=== PATIENT | male | born 1940 | race Caucasian/White ===

== ENCOUNTER → 2016-07-27 | Outpatient (CLI) | payer OTHER ==
[~2016-07-27] MED LIST: ASCORBIC ACID500 M3 PO; ASPIR-LOW81 MG PO; BAYER CHEWABLE81 MG PO; BISACODYL5 MG PO; CIPRO500 MG PO; CYANOCOBALAM1000 MCG PO; DOK PLUS TABLE1 EACH PO; DUONEB 2.5-0.5 M3 ML PEP; ECOTRIN325 MG PO; FAMOTIDINE20 MG PO; FERROUS SULFAT325 MG PO; FOLIC ACID1 MG PO; GLUCOTROL5 MG PO; IMODIUM MS REL1 EACH PO; LABETALOL H5 MG/1 M1 IV; LEVEMIR100 UNIT/2 SC; LISINOPRIL10 MG PO; LOPRESSOR50 MG PO; LOVENOX40 MG/0.4 SC; NEUTRA-PHOS,1 PACKET PO; NOVOLOG PE100 UNITS/ SC; ONDANSETRON4 MG/2 ML IV; POTASSIUM CHLO20 ME1 PO; PROMETHAZI25 MG/1 M2 IM; PROMETHAZINE HC25 M1 PO; SALINE FLUSH 5 M5 ML IV; THERAGRAN1 TABLET PO; TYLENOL ARTHRI650 MG PO; TYLENOL REGULA325 MG PO; TYLENOL650 MG PR; VITAMIN D2000 UNIT PO
== END | disposition home or self-care (01) ==
LOC: RAD 07-26 09:00
DX: N13.30 Unspecified hydronephrosis (principal)
CPT/HCPCS: 76770; 78709; A9562

== ENCOUNTER 2016-12-10 17:49 | Inpatient (IN) | payer OTHER ==
[~2016-12-10] VITALS: Ht 170.2 cm; Wt 65.8 kg
[2016-12-10 18:50] LABS: EOSINOPHIL (%) 0.2 % (0-5); HEMATOCRIT 40.6 % (38.0-50.0); IMMATURE GRANULOCYTE (%) 0.6 % (0.0-0.7); IMMATURE GRANULOCYTE COUNT 0.1 K/uL; INSTRUMENT ABS NEUTROPHIL CT 11.2 K/uL; LYMPHOCYTE COUNT 1.1 K/uL (1.0-2.8); MCH 29.7 PG (29.0-34.0); MCHC 33.7 G/DL (30.0-36.0); MCV 87.9 FL (86-99); MEAN PLAT.VOLUME 10.1 uM^3 (9.0-12.4); MONOCYTE (%) 4.7 % (3-12); MONOCYTE COUNT 0.6 K/uL (0-0.8); NEUTROPHIL (%) 85.9 % (45-76); NEUTROPHIL COUNT 11.2 K/uL (1.8-6.4); PLATELET COUNT 227 K/uL (156-360); RBC DIS.WIDTH-CV 12.8 % (11.8-14.6); RBC DIS.WIDTH-SD 41.1 % (39-53); RED BLOOD COUNT 4.62 M/uL (4.00-5.50)
[2016-12-10 18:59] LABS: CHLORIDE 108 mEq/L (99-109); POTASSIUM 4.7 mEq/L (3.7-5.4); SODIUM 138 mEq/L (136-147)
[2016-12-10 19:01] LABS: GLUCOSE 218 mg/dL (70-99)
[2016-12-10 19:02] LABS: ANION GAP 17 MEQ/L (2-14)
[2016-12-10 19:05] LABS: GFR ESTIMATE (CALCULATED) 13 mL/min/
[2016-12-10 19:13] LABS: UREA NITROGEN (BUN) 124 mg/dL (9-23)
[2016-12-10 20:01] LABS: TOTAL BILIRUBIN 0.4 mg/dL (0.0-1.0)
[2016-12-10 20:02] LABS: ALKALINE PHOSPHATASE 98 IU/L (3-129)
[2016-12-10 20:05] LABS: DIRECT BILIRUBIN 0.1 mg/dL (0.0-0.3)
[2016-12-10 21:24] LABS: ADD MIUA? YES; BILIRUBIN NEGATIVE; BLOOD MODERATE; COLOR YELLOW ((YELLOW)); GLUCOSE (STRIP) NEGATIVE; KETONES NEGATIVE; LEUKOCYTES MODERATE; NITRITE NEGATIVE; PROTEIN (STRIP) 100; SPECIFIC GRAVITY 1.013 (1.000-1.030); UROBILINOGEN 0.2 MG/DL (0.2-1.0)
[2016-12-10 21:33] LABS: WHITE BLOOD CELLS TNTC /HPF (0-5)
[2016-12-10 22:00] LABS: BASE EXCESS -11.5 mEq/L (-3 to +3); BICARBONATE 12.4 mEq/L (22-26); CARBOXY HGB 1.6 % (0-5); COMMENTS - BLOOD GASES C+; FI02 21 %; METHEMOGLOBIN 5.4 % (0-1.5); PCO2 23 mm Hg (35-45); PO2 102 mm Hg (80-100); SITE RB; TOTAL RESP RATE 20 resp/min; pH 7.34 (7.35-7.45)
[2016-12-10 22:50] LABS: LIPASE 28 U/L (1.0-51.0)
[2016-12-10 23:53] LABS: CHLORIDE 116 mEq/L (99-109); POTASSIUM 3.9 mEq/L (3.7-5.4); SODIUM 142 mEq/L (136-147)
[2016-12-10 23:56] LABS: ANION GAP 15 MEQ/L (2-14)
[2016-12-11 00:04] LABS: POINT-OF-CARE METER ID UU14100415
[2016-12-11 00:13] LABS: GFR ESTIMATE (CALCULATED) 17 mL/min/; GLUCOSE 65 mg/dL (70-99); UREA NITROGEN (BUN) 106 mg/dL (9-23)
[2016-12-11] MEDS ORDERED: TAMSULOSIN HCL0.4 MG PO (00:42)
[2016-12-11] MEDS ORDERED: FLUOXETINE HCL20 MG PO (00:42)
[2016-12-11] MEDS ORDERED: FINASTERIDE5 MG PO (00:43)
[2016-12-11] MEDS ORDERED: JANUVIA25 M1 PO (00:43)
[2016-12-11] MEDS ORDERED: LISINOPRIL30 MG PO (00:43)
[2016-12-11] MEDS ORDERED: LO-DOSE ASPIRIN81 M1 PO (00:44)
[2016-12-11 01:04] LABS: POINT-OF-CARE METER ID UU14100415
[2016-12-11 04:05] LABS: HEMATOCRIT 38.9 % (38.0-50.0); MCV 87.8 FL (86-99)
[2016-12-11 04:45] VITALS: BP 186/70
[2016-12-11 05:26] VITALS: BP 134/72
[2016-12-11 06:50] LABS: UCUL ADDED? YES
[2016-12-11 08:28] VITALS: BP 136/65
[2016-12-11 09:37] LABS: CHLORIDE 115 mEq/L (99-109); POTASSIUM 4.6 mEq/L (3.7-5.4); SODIUM 144 mEq/L (136-147)
[2016-12-11 09:41] LABS: ANION GAP 16 MEQ/L (2-14)
[2016-12-11 09:43] LABS: ALKALINE PHOSPHATASE 82 IU/L (3-129); GFR ESTIMATE (CALCULATED) 18 mL/min/
[2016-12-11 09:49] LABS: HEMATOCRIT 35.8 % (38.0-50.0); MCV 89.3 FL (86-99)
[2016-12-11 09:50] LABS: GLUCOSE 209 mg/dL (70-99); TOTAL BILIRUBIN 0.3 mg/dL (0.0-1.0); UREA NITROGEN (BUN) 115 mg/dL (9-23)
[2016-12-11 12:06] VITALS: BP 130/68
[2016-12-11 16:41] VITALS: BP 132/68
[2016-12-11 16:47] LABS: HEMATOCRIT 37.7 % (38.0-50.0); MCV 91.1 FL (86-99)
[2016-12-11 20:00] VITALS: BP 117/51
[2016-12-11 21:50] LABS: HEMATOCRIT 34.7 % (38.0-50.0); MCV 91.6 FL (86-99)
[2016-12-11 23:26] LABS: INTERNAL CONTROL VALID? YES
[2016-12-12] VITALS (7 sets, daily range): BP systolic 92–130; BP diastolic 49–62
[2016-12-12 09:09] LABS: HEMATOCRIT 32.3 % (38.0-50.0); MCH 30.1 PG (29.0-34.0); MCHC 33.1 G/DL (30.0-36.0); MCV 90.7 FL (86-99); RBC DIS.WIDTH-CV 13.3 % (11.8-14.6); RBC DIS.WIDTH-SD 44.3 % (39-53); RED BLOOD COUNT 3.56 M/uL (4.00-5.50); WHITE BLOOD COUNT 16.5 K/uL (4.1-10.2)
[2016-12-12 09:44] LABS: ANION GAP 17 MEQ/L (2-14); CHLORIDE 122 MEQ/L (99-109); GLUCOSE 213 mg/dL (70-99); MEAN PLAT.VOLUME 11.5 uM^3 (9.0-12.4); PLAT.SUFFICIENCY DECREASED; PLATELET COUNT 108 K/uL (156-360); SAMPLE HEMOLYSIS CHECK 0; SAMPLE ICTERIC CHECK 0; SAMPLE LIPEMIA CHECK 0; SODIUM 150 MEQ/L (136-147)
[2016-12-12 09:47] LABS: GFR ESTIMATE (CALCULATED) 14 mL/min/; UREA NITROGEN (BUN) 110 mg/dL (9-23)
[2016-12-12 14:07] LABS: C DIFF TOXIN NEGATIVE (NEGATIVE); SPECIMEN PROCESSING CONTROL PASS
[2016-12-12 14:08] LABS: PROBE CHECK PASS
[2016-12-12 14:53] LABS: INTER. NORMALIZED RATIO 1.4; PROTHROMBIN TIME 14.7 (9.2-11.2)
[2016-12-12 21:01] LABS: POINT-OF-CARE METER ID UU14188625
[2016-12-13] VITALS (7 sets, daily range): BP systolic 85–138; BP diastolic 40–62
[2016-12-13 06:53] LABS: INTERNAL CONTROL VALID? YES
[2016-12-13 07:53] LABS: POINT-OF-CARE METER ID UU14188625
[2016-12-13 08:19] LABS: MCH 30.5 PG (29.0-34.0); MCHC 34.1 G/DL (30.0-36.0); MCV 89.2 FL (86-99); MEAN PLAT.VOLUME 11.8 uM^3 (9.0-12.4); PLATELET COUNT 97 K/uL (156-360); RBC DIS.WIDTH-CV 13.8 % (11.8-14.6); RBC DIS.WIDTH-SD 45.1 % (39-53); RED BLOOD COUNT 3.25 M/uL (4.00-5.50)
[2016-12-13 08:23] LABS: WHITE BLOOD COUNT 29.5 K/uL (4.1-10.2)
[2016-12-13 08:30] LABS: ABS NEUTROPHIL COUNT 27.2; BAND NEUTROPHILS 24.3 % (0-8.0); EOSINOPHIL ABS CT 0; INSTRUMENT ABS NEUTROPHIL CT 24.4 K/uL; LYMPHOCYTES 4.4 % (15.0-45.0); METAMYELOCYTES 2.6 %; SEG.NEUTROPHILS 67.8 % (46.0-76.0); SMUDGE CELLS 0.9
[2016-12-13 08:35] LABS: ANION GAP 14 MEQ/L (2-14); CHLORIDE 121 MEQ/L (99-109); GFR ESTIMATE (CALCULATED) 15 mL/min/; POTASSIUM 3.5 MEQ/L (3.7-5.4); SAMPLE HEMOLYSIS CHECK 0; SAMPLE ICTERIC CHECK 0; SAMPLE LIPEMIA CHECK 0; SODIUM 151 MEQ/L (136-147)
[2016-12-13 08:37] LABS: GLUCOSE 66 mg/dL (70-99); UREA NITROGEN (BUN) 111 mg/dL (9-23)
[2016-12-14 03:47] VITALS: BP 165/71
[2016-12-14 07:14] LABS: MCH 29.2 PG (29.0-34.0); MCHC 33.5 G/DL (30.0-36.0); MCV 87.2 FL (86-99); MEAN PLAT.VOLUME 12.2 uM^3 (9.0-12.4); PLATELET COUNT 73 K/uL (156-360); RBC DIS.WIDTH-SD 44.5 % (39-53); RED BLOOD COUNT 2.98 M/uL (4.00-5.50); WHITE BLOOD COUNT 23.6 K/uL (4.1-10.2)
[2016-12-14 07:36] LABS: ANION GAP 10 MEQ/L (2-14); CHLORIDE 120 MEQ/L (99-109); GFR ESTIMATE (CALCULATED) 23 mL/min/; GLUCOSE 108 mg/dL (70-99); POTASSIUM 2.9 MEQ/L (3.7-5.4); SAMPLE HEMOLYSIS CHECK 0; SAMPLE ICTERIC CHECK 0; SAMPLE LIPEMIA CHECK 0; SODIUM 150 MEQ/L (136-147); UREA NITROGEN (BUN) 78 mg/dL (9-23)
[2016-12-14 07:37] VITALS: BP 140/59
[2016-12-14 07:53] LABS: ABS NEUTROPHIL COUNT 21.9; BAND NEUTROPHILS 7.9 % (0-8.0); BASOPHILS 2.6 %; EOSINOPHIL ABS CT 0; INSTRUMENT ABS NEUTROPHIL CT 18.7 K/uL; LYMPHOCYTES 2.6 % (15.0-45.0); METAMYELOCYTES 1.8 %; SEG.NEUTROPHILS 85.1 % (46.0-76.0); SMUDGE CELLS 3.5
[2016-12-14 08:28] LABS: POINT-OF-CARE METER ID UU14188625
[2016-12-14 11:38] VITALS: BP 120/77
[2016-12-14 15:57] VITALS: BP 131/63
[2016-12-14 17:45] LABS: POINT-OF-CARE METER ID UU14188625
[2016-12-14 19:59] VITALS: BP 128/60
[2016-12-14 20:46] LABS: POINT-OF-CARE METER ID UU14188625
[2016-12-14 21:13] LABS: POINT-OF-CARE METER ID UU14188625
[2016-12-14 23:29] VITALS: BP 127/68
[2016-12-15] VITALS (7 sets, daily range): BP systolic 143–185; BP diastolic 59–84
[2016-12-15 07:30] LABS: POINT-OF-CARE METER ID UU14174225
[2016-12-15 08:00] LABS: EOSINOPHIL (%) 1.6 % (0-5); EOSINOPHIL COUNT 0.2 K/uL (0-0.3); HEMATOCRIT 29.5 % (38.0-50.0); IMMATURE GRANULOCYTE (%) 0.7 % (0.0-0.7); IMMATURE GRANULOCYTE COUNT 0.1 K/uL; INSTRUMENT ABS NEUTROPHIL CT 10.9 K/uL; LYMPHOCYTE COUNT 1.7 K/uL (1.0-2.8); MCHC 32.9 G/DL (30.0-36.0); MCV 88.3 FL (86-99); MEAN PLAT.VOLUME 12.6 uM^3 (9.0-12.4); MONOCYTE (%) 2.8 % (3-12); MONOCYTE COUNT 0.4 K/uL (0-0.8); NEUTROPHIL COUNT 10.9 K/uL (1.8-6.4); PLATELET COUNT 66 K/uL (156-360); RBC DIS.WIDTH-CV 14.5 % (11.8-14.6); RBC DIS.WIDTH-SD 46.9 % (39-53); RED BLOOD COUNT 3.34 M/uL (4.00-5.50)
[2016-12-15 08:03] LABS: WHITE BLOOD COUNT 13.3 K/uL (4.1-10.2)
[2016-12-15 08:39] LABS: ANION GAP 9 MEQ/L (2-14); CHLORIDE 119 MEQ/L (99-109); GFR ESTIMATE (CALCULATED) 35 mL/min/; GLUCOSE 157 mg/dL (70-99); POTASSIUM 3.4 MEQ/L (3.7-5.4); SAMPLE HEMOLYSIS CHECK 0; SAMPLE ICTERIC CHECK 0; SAMPLE LIPEMIA CHECK 0; SODIUM 153 MEQ/L (136-147); UREA NITROGEN (BUN) 48 mg/dL (9-23)
[2016-12-15 11:12] LABS: POINT-OF-CARE METER ID UU14174225
[2016-12-15 20:44] LABS: POINT-OF-CARE METER ID UU14174225
[2016-12-16] VITALS (8 sets, daily range): BP systolic 121–188; BP diastolic 59–88
[2016-12-16 05:34] LABS: EOSINOPHIL (%) 1.5 % (0-5); EOSINOPHIL COUNT 0.1 K/uL (0-0.3); HEMATOCRIT 27.4 % (38.0-50.0); IMMATURE GRANULOCYTE COUNT 0.1 K/uL; INSTRUMENT ABS NEUTROPHIL CT 7.5 K/uL; LYMPHOCYTE COUNT 1.3 K/uL (1.0-2.8); MCH 29.8 PG (29.0-34.0); MCHC 33.6 G/DL (30.0-36.0); MCV 88.7 FL (86-99); MEAN PLAT.VOLUME 11.7 uM^3 (9.0-12.4); MONOCYTE (%) 4.7 % (3-12); MONOCYTE COUNT 0.4 K/uL (0-0.8); NEUTROPHIL (%) 79.4 % (45-76); NEUTROPHIL COUNT 7.5 K/uL (1.8-6.4); PLATELET COUNT 64 K/uL (156-360); RBC DIS.WIDTH-CV 14.3 % (11.8-14.6); RBC DIS.WIDTH-SD 46.4 % (39-53); RED BLOOD COUNT 3.09 M/uL (4.00-5.50); WHITE BLOOD COUNT 9.4 K/uL (4.1-10.2)
[2016-12-16 06:27] LABS: ANION GAP 9 MEQ/L (2-14); CHLORIDE 117 MEQ/L (99-109); GFR ESTIMATE (CALCULATED) 39 mL/min/; GLUCOSE 210 mg/dL (70-99); POTASSIUM 3.4 MEQ/L (3.7-5.4); SAMPLE HEMOLYSIS CHECK 0; SAMPLE ICTERIC CHECK 0; SAMPLE LIPEMIA CHECK 0; SODIUM 150 MEQ/L (136-147); UREA NITROGEN (BUN) 34 mg/dL (9-23)
[2016-12-16 12:16] LABS: HBSG INDEX 0.19; HPCA INDEX 0.09
[2016-12-16 12:17] LABS: ANTI-HEPATITIS A VIRUS (IGM) Nonreactive; HAV INDEX 0.11
[2016-12-16 12:18] LABS: ANTI-HEPATITIS B CORE (IGM) Nonreactive; HBC IgM INDEX 0.06
[2016-12-17 05:10] VITALS: BP 177/76
[2016-12-17 05:57] LABS: EOSINOPHIL (%) 1.4 % (0-5); EOSINOPHIL COUNT 0.1 K/uL (0-0.3); IMMATURE GRANULOCYTE (%) 3.4 % (0.0-0.7); IMMATURE GRANULOCYTE COUNT 0.3 K/uL; INSTRUMENT ABS NEUTROPHIL CT 6.3 K/uL; LYMPHOCYTE COUNT 1.4 K/uL (1.0-2.8); MCH 29.4 PG (29.0-34.0); MCHC 33.1 G/DL (30.0-36.0); MEAN PLAT.VOLUME 11.8 uM^3 (9.0-12.4); MONOCYTE COUNT 0.5 K/uL (0-0.8); NEUTROPHIL (%) 73.3 % (45-76); NEUTROPHIL COUNT 6.3 K/uL (1.8-6.4); PLATELET COUNT 77 K/uL (156-360); RBC DIS.WIDTH-CV 13.8 % (11.8-14.6); RED BLOOD COUNT 3.26 M/uL (4.00-5.50); WHITE BLOOD COUNT 8.6 K/uL (4.1-10.2)
[2016-12-17 07:14] LABS: ANION GAP 8 MEQ/L (2-14); CHLORIDE 115 MEQ/L (99-109); GFR ESTIMATE (CALCULATED) 42 mL/min/; GLUCOSE 223 mg/dL (70-99); POTASSIUM 3.6 MEQ/L (3.7-5.4); SAMPLE HEMOLYSIS CHECK 0; SAMPLE ICTERIC CHECK 0; SAMPLE LIPEMIA CHECK 0; SODIUM 149 MEQ/L (136-147); UREA NITROGEN (BUN) 24 mg/dL (9-23)
[2016-12-17 07:30] VITALS: BP 184/78
[2016-12-17 11:49] VITALS: BP 166/72
[2016-12-17 15:59] VITALS: BP 160/72
[2016-12-17 20:24] VITALS: BP 151/67
[2016-12-18] VITALS (7 sets, daily range): BP systolic 118–168; BP diastolic 57–82
[2016-12-18 07:44] LABS: EOSINOPHIL COUNT 0.2 K/uL (0-0.3); HEMATOCRIT 28.9 % (38.0-50.0); IMMATURE GRANULOCYTE COUNT 0.4 K/uL; INSTRUMENT ABS NEUTROPHIL CT 5.8 K/uL; LYMPHOCYTE COUNT 1.4 K/uL (1.0-2.8); MCH 30.2 PG (29.0-34.0); MCHC 33.9 G/DL (30.0-36.0); MCV 89.2 FL (86-99); MONOCYTE COUNT 0.6 K/uL (0-0.8); NEUTROPHIL (%) 69.1 % (45-76); NEUTROPHIL COUNT 5.8 K/uL (1.8-6.4); RBC DIS.WIDTH-CV 13.7 % (11.8-14.6); RBC DIS.WIDTH-SD 44.7 % (39-53); RED BLOOD COUNT 3.24 M/uL (4.00-5.50); WHITE BLOOD COUNT 8.4 K/uL (4.1-10.2)
[2016-12-18 08:10] LABS: MEAN PLAT.VOLUME 11.7 uM^3 (9.0-12.4); PLATELET COUNT 61 K/uL (156-360)
[2016-12-18 08:21] LABS: ANION GAP 8 MEQ/L (2-14); CHLORIDE 111 MEQ/L (99-109); GFR ESTIMATE (CALCULATED) 48 mL/min/; GLUCOSE 152 mg/dL (70-99); POTASSIUM 3.5 MEQ/L (3.7-5.4); SAMPLE HEMOLYSIS CHECK 0; SAMPLE ICTERIC CHECK 0; SAMPLE LIPEMIA CHECK 0; SODIUM 142 MEQ/L (136-147); UREA NITROGEN (BUN) 17 mg/dL (9-23)
[2016-12-19] VITALS (7 sets, daily range): BP systolic 110–190; BP diastolic 53–78
[2016-12-19 06:06] LABS: HEMATOCRIT 31.9 % (38.0-50.0); MCH 30.2 PG (29.0-34.0); MCHC 32.6 G/DL (30.0-36.0); MCV 92.7 FL (86-99); MEAN PLAT.VOLUME 12.3 uM^3 (9.0-12.4); PLATELET COUNT 63 K/uL (156-360); RBC DIS.WIDTH-SD 47.3 % (39-53); RED BLOOD COUNT 3.44 M/uL (4.00-5.50); WHITE BLOOD COUNT 10.8 K/uL (4.1-10.2)
[2016-12-19 06:31] LABS: ANION GAP 6 MEQ/L (2-14); CHLORIDE 113 MEQ/L (99-109); GFR ESTIMATE (CALCULATED) 48 mL/min/; GLUCOSE 156 mg/dL (70-99); POTASSIUM 4.5 MEQ/L (3.7-5.4); SAMPLE HEMOLYSIS CHECK 1; SAMPLE ICTERIC CHECK 0; SAMPLE LIPEMIA CHECK 0; SODIUM 144 MEQ/L (136-147); UREA NITROGEN (BUN) 16 mg/dL (9-23)
[2016-12-19 11:18] LABS: POINT-OF-CARE METER ID UU14188625
[2016-12-19 15:02] LABS: Heparin Induced Plt Ab Negative (Negative)
[2016-12-19 16:19] LABS: POINT-OF-CARE METER ID UU14174225
[2016-12-19 16:24] LABS: UFH SRA Result Negative (Negative)
[2016-12-19 21:11] LABS: POINT-OF-CARE METER ID UU14188625
[2016-12-20] VITALS: BP 124/58
[2016-12-20 04:00] VITALS: BP 159/74
[2016-12-20 07:29] VITALS: BP 167/72
[2016-12-20 11:03] LABS: POINT-OF-CARE METER ID UU14174225
[2016-12-20 11:10] VITALS: BP 101/59
[2016-12-20] MEDS ORDERED: NICOTINE PATCH1 EACH TD (11:35)
[2016-12-20] MEDS ORDERED: LEVOFLOXACIN750 MG PO (11:35)
[2016-12-20] MEDS ORDERED: LOPRESSOR25 MG PO (11:36)
[2016-12-20] MEDS ORDERED: LISINOPRIL20 MG PO (11:38)
[2016-12-20] MEDS ORDERED: ACIDOPHILUS LA1 EACH PO (11:43)
[2016-12-20] MEDS ORDERED: PANTOPRAZOLE SO40 MG PO (11:43)
== END 2016-12-20 14:52 | DRG 682 ==
LOC: EME 17:49 → EDOF 12-11 03:36 → 5SOUTH 12-11 03:36
PROVIDERS: Emergency Medicine; Internal Medicine; Internal Medicine Hematology & Oncology; Internal Medicine Nephrology; Nurse Practitioner Adult Health; Physician Assistant
DX: N17.9 Acute kidney failure, unspecified (principal); E87.2 Acidosis; J18.0 Bronchopneumonia, unspecified organism; N13.6 Pyonephrosis; M54.12 Radiculopathy, cervical region; R11.2 Nausea with vomiting, unspecified; R19.7 Diarrhea, unspecified; D69.6 Thrombocytopenia, unspecified; E86.0 Dehydration; E87.0 Hyperosmolality and hypernatremia; I12.9 Hypertensive chronic kidney disease with stage 1 through stage 4 chronic kidney disease, or unspecified chronic kidney disease; N18.3 Chronic kidney disease, stage 3 (moderate); E11.22 Type 2 diabetes mellitus with diabetic chronic kidney disease; E11.65 Type 2 diabetes mellitus with hyperglycemia; E78.5 Hyperlipidemia, unspecified; N40.1 Benign prostatic hyperplasia with lower urinary tract symptoms; R33.8 Other retention of urine; K59.00 Constipation, unspecified; Z66 Do not resuscitate; F17.210 Nicotine dependence, cigarettes, uncomplicated; Z79.82 Long term (current) use of aspirin; Z59.0 Homelessness
CPT/HCPCS: 36600; 71250; 72040; 72141; 74176; 76770; 80048; 80048 91; 80053; 80074; 80076; 81003; 82010; 82271; 82272; 82436; 82607; 82746; 82803; 82948; 83605; 83630; 83690; 84133; 84300; 85014; 85018; 85025; 85027; 85610; 86022 90; 87040; 87086; 87177; 87493; 87506; 93005; 97530 GP; 99281; 99285; C9113; J0360; J0696; J1644; J1815; J2405; J2543; J2765; J3480; J7030; J7040; J7050; J7070

== ENCOUNTER 2017-02-01 21:41 | Inpatient (IN) | payer OTHER ==
[~2017-02-01] VITALS: Ht 170.2 cm; Wt 84.0 kg
[~2017-02-01 21:41] MED LIST changes: +ACIDOPHILUS LA1 EACH PO; +FINASTERIDE5 MG PO; +FLUOXETINE HCL20 MG PO; +JANUVIA25 M1 PO; +LEVOFLOXACIN750 MG PO; +LISINOPRIL20 MG PO; +LISINOPRIL30 MG PO; +LO-DOSE ASPIRIN81 M1 PO; +LOPRESSOR25 MG PO; +NICOTINE PATCH1 EACH TD; +PANTOPRAZOLE SO40 MG PO; +TAMSULOSIN HCL0.4 MG PO
[2017-02-01 22:44] LABS: HEMATOCRIT 34.2 % (38.0-50.0); MCH 28.8 PG (29.0-34.0); MCHC 32.5 G/DL (30.0-36.0); MCV 88.6 FL (86-99); MEAN PLAT.VOLUME 10.4 uM^3 (9.0-12.4); PLATELET COUNT 161 K/uL (156-360); RBC DIS.WIDTH-CV 13.4 % (11.8-14.6); RBC DIS.WIDTH-SD 43.8 % (39-53); RED BLOOD COUNT 3.86 M/uL (4.00-5.50); WHITE BLOOD COUNT 11.4 K/uL (4.1-10.2)
[2017-02-01 22:58] LABS: CHLORIDE 105 mEq/L (99-109); POTASSIUM 3.8 mEq/L (3.7-5.4); SODIUM 136 mEq/L (136-147)
[2017-02-01 22:59] LABS: INTER. NORMALIZED RATIO 1.1; PTT 24.5 (25-32)
[2017-02-01 23:00] LABS: GLUCOSE 189 mg/dL (70-99)
[2017-02-01 23:01] LABS: TROP-I INTERPRETATION NEGATIVE; TROPONIN-I < 0.01 ng/mL (0.0-0.30)
[2017-02-01 23:01] LABS: ANION GAP 13 MEQ/L (2-14)
[2017-02-01 23:04] LABS: GFR ESTIMATE (CALCULATED) 20 mL/min/; UREA NITROGEN (BUN) 45 mg/dL (9-23)
[2017-02-02 03:58] VITALS: BP 146/66
[2017-02-02 06:23] LABS: TROP-I INTERPRETATION NEGATIVE; TROPONIN-I < 0.01 ng/mL (0.0-0.30)
[2017-02-02 06:31] LABS: HDL CHOLESTEROL 30 MG/DL (Desirable>=40); LDL CHOLESTEROL 150 mg/dL (Desirable<100); NON-HDL CHOLESTEROL 211 mg/dL (Desirable<160); TOTAL CHOLESTEROL 241 mg/dL (Desirable<200); TRIGLYCERIDES 304 MG/DL (Normal: <150)
[2017-02-02 07:37] VITALS: BP 151/73
[2017-02-02 08:05] LABS: Estimated Average Glucose 146 mg/dL (70-123); HEMOGLOBIN A1c (GLYCOHEMOGLOB) 6.7 % HGB (Below 5.7)
[2017-02-02 08:17] LABS: POINT-OF-CARE METER ID UU14174225
[2017-02-02 11:13] VITALS: BP 126/74
[2017-02-02 11:13] LABS: HEMATOCRIT 37.2 % (38.0-50.0); MCH 29.1 PG (29.0-34.0); MCHC 32.8 G/DL (30.0-36.0); MCV 88.8 FL (86-99); MEAN PLAT.VOLUME 10.2 uM^3 (9.0-12.4); PLATELET COUNT 160 K/uL (156-360); RBC DIS.WIDTH-CV 13.2 % (11.8-14.6); RBC DIS.WIDTH-SD 43.2 % (39-53); RED BLOOD COUNT 4.19 M/uL (4.00-5.50)
[2017-02-02 11:45] LABS: ALKALINE PHOSPHATASE 68 IU/L (3-129); ANION GAP 9 MEQ/L (2-14); CHLORIDE 108 MEQ/L (99-109); GFR ESTIMATE (CALCULATED) 28 mL/min/; GLUCOSE 184 mg/dL (70-99); POTASSIUM 3.9 MEQ/L (3.7-5.4); SAMPLE HEMOLYSIS CHECK 0; SAMPLE ICTERIC CHECK 0; SAMPLE LIPEMIA CHECK 0; SODIUM 139 MEQ/L (136-147); TOTAL BILIRUBIN 0.4 MG/DL (0.0-1.0); UREA NITROGEN (BUN) 37 mg/dL (9-23)
[2017-02-02] MEDS ORDERED: FUROSEMIDE20 MG PO (13:56)
[2017-02-02] MEDS ORDERED: ASPIR 8181 M1 PO (13:56)
[2017-02-02] MEDS ORDERED: LISINOPRIL30 MG PO (13:56)
[2017-02-02 14:12] VITALS: BP 158/87
[2017-02-02 16:38] LABS: POINT-OF-CARE METER ID UU14188625
[2017-02-02 19:22] LABS: ADD MIUA? YES; BILIRUBIN NEGATIVE; BLOOD SMALL; COLOR YELLOW ((YELLOW)); GLUCOSE (STRIP) NEGATIVE; KETONES NEGATIVE; LEUKOCYTES LARGE; NITRITE NEGATIVE; PROTEIN (STRIP) 30; SPECIFIC GRAVITY 1.014 (1.000-1.030); UROBILINOGEN 0.2 MG/DL (0.2-1.0)
[2017-02-02 19:54] LABS: BACTERIA 2+ /HPF; EPITHELIAL CELLS RARE /HPF; MUCUS 1+ /LPF; WHITE BLOOD CELLS 30-40 /HPF (0-5)
[2017-02-02 20:09] VITALS: BP 148/65
[2017-02-02 21:15] LABS: POINT-OF-CARE METER ID UU14174225
[2017-02-02 23:30] VITALS: BP 139/68
[2017-02-03 04:09] VITALS: BP 138/71
[2017-02-03 06:36] LABS: HEMATOCRIT 33.2 % (38.0-50.0); MCH 29.5 PG (29.0-34.0); MCHC 32.8 G/DL (30.0-36.0); MCV 89.7 FL (86-99); MEAN PLAT.VOLUME 10.9 uM^3 (9.0-12.4); PLATELET COUNT 145 K/uL (156-360); RBC DIS.WIDTH-CV 13.3 % (11.8-14.6); RBC DIS.WIDTH-SD 44.2 % (39-53); WHITE BLOOD COUNT 9.5 K/uL (4.1-10.2)
[2017-02-03 07:01] LABS: ANION GAP 8 MEQ/L (2-14); CHLORIDE 109 MEQ/L (99-109); GFR ESTIMATE (CALCULATED) 33 mL/min/; GLUCOSE 193 mg/dL (70-99); SAMPLE HEMOLYSIS CHECK 0; SAMPLE ICTERIC CHECK 0; SAMPLE LIPEMIA CHECK 0; SODIUM 138 MEQ/L (136-147); UREA NITROGEN (BUN) 37 mg/dL (9-23)
[2017-02-03 07:29] VITALS: BP 114/53
[2017-02-03 07:29] LABS: TROP-I INTERPRETATION NEGATIVE; TROPONIN-I < 0.01 ng/mL (0.0-0.30)
[2017-02-03 11:28] VITALS: BP 110/62
[2017-02-03 12:09] LABS: POINT-OF-CARE METER ID UU13113717
[2017-02-03 15:41] LABS: POINT-OF-CARE METER ID UU13113717
[2017-02-03 16:22] LABS: HEMATOCRIT 36.3 % (38.0-50.0); MCH 28.6 PG (29.0-34.0); MCHC 31.1 G/DL (30.0-36.0); MCV 91.9 FL (86-99); PLATELET COUNT 127 K/uL (156-360); RBC DIS.WIDTH-CV 13.2 % (11.8-14.6); RED BLOOD COUNT 3.95 M/uL (4.00-5.50); WHITE BLOOD COUNT 2.5 K/uL (4.1-10.2)
[2017-02-03 16:34] LABS: ANION GAP 14 MEQ/L (2-14); CHLORIDE 107 MEQ/L (99-109); SAMPLE HEMOLYSIS CHECK 0; SAMPLE ICTERIC CHECK 0; SAMPLE LIPEMIA CHECK 0; SODIUM 136 MEQ/L (136-147)
[2017-02-03 16:39] LABS: GFR ESTIMATE (CALCULATED) 31 mL/min/; GLUCOSE 231 mg/dL (70-99); UREA NITROGEN (BUN) 38 mg/dL (9-23)
[2017-02-03 16:43] LABS: TROP-I INTERPRETATION NEGATIVE; TROPONIN-I < 0.01 ng/mL (0.0-0.30)
[2017-02-03 18:21] LABS: C DIFF TOXIN POSITIVE (NEGATIVE)
[2017-02-03 18:26] LABS: PROBE CHECK PASS
[2017-02-03 19:46] VITALS: BP 85/42
[2017-02-03 20:14] LABS: HEMATOCRIT 29.6 % (38.0-50.0); MCV 91.1 FL (86-99)
[2017-02-03 21:24] LABS: POINT-OF-CARE METER ID UU14174225
[2017-02-03 22:30] VITALS: BP 89/38
[2017-02-03 23:00] VITALS: BP 122/41
[2017-02-03 23:40] LABS: METH RESISTANT S AUREUS PCR NEGATIVE (NEGATIVE)
[2017-02-04] VITALS (34 sets, daily range): BP systolic 61–146; BP diastolic 29–66
[2017-02-04 00:05] LABS: PROBE CHECK PASS; SPECIMEN PROCESSING CONTROL PASS
[2017-02-04 00:18] LABS: POINT-OF-CARE METER ID UU13113748
[2017-02-04 03:33] LABS: ADD MIUA? YES; BILIRUBIN NEGATIVE; BLOOD LARGE; COLOR YELLOW ((YELLOW)); GLUCOSE (STRIP) NEGATIVE; KETONES NEGATIVE; LEUKOCYTES LARGE; NITRITE NEGATIVE; PROTEIN (STRIP) NEGATIVE; UROBILINOGEN 0.2 MG/DL (0.2-1.0)
[2017-02-04 03:50] LABS: BACTERIA 3+ /HPF; EPITHELIAL CELLS 1+ /HPF; MUCUS RARE /LPF; RED BLOOD CELLS 30-40 /HPF (0-5); UCUL ADDED? YES; WHITE BLOOD CELLS TNTC /HPF (0-5)
[2017-02-04 03:51] LABS: CASTS NONE SEEN /LPF; CRYSTALS NONE SEEN; OTHER BUDDING YEAST
[2017-02-04 04:35] LABS: HEMATOCRIT 27.4 % (38.0-50.0); MCH 28.7 PG (29.0-34.0); MCHC 32.5 G/DL (30.0-36.0); MCV 88.4 FL (86-99); RBC DIS.WIDTH-CV 13.4 % (11.8-14.6); RBC DIS.WIDTH-SD 44.1 % (39-53); WHITE BLOOD COUNT 9.5 K/uL (4.1-10.2)
[2017-02-04 04:43] LABS: CHLORIDE 113 mEq/L (99-109); POTASSIUM 4.1 mEq/L (3.7-5.4); SODIUM 137 mEq/L (136-147)
[2017-02-04 04:44] LABS: GLUCOSE 135 mg/dL (70-99)
[2017-02-04 04:46] LABS: ANION GAP 10 MEQ/L (2-14)
[2017-02-04 04:48] LABS: GFR ESTIMATE (CALCULATED) 28 mL/min/
[2017-02-04 04:49] LABS: UREA NITROGEN (BUN) 42 mg/dL (9-23)
[2017-02-04 05:28] LABS: ABS NEUTROPHIL COUNT 9.1; ANISOCYTOSIS 1+; BAND NEUTROPHILS 12.5 % (0-8.0); BURR CELLS 1+; EOSINOPHIL ABS CT 0; LYMPHOCYTES 1.8 % (15.0-45.0); MEAN PLAT.VOLUME 10.7 uM^3 (9.0-12.4); MICROCYTOSIS 1+; OVALOCYTES 1+; PLAT.SUFFICIENCY DECREASED
[2017-02-04 05:33] LABS: PLATELET COUNT 58 K/uL (156-360)
[2017-02-04 08:23] LABS: HEMATOCRIT 29.2 % (38.0-50.0); MCH 28.8 PG (29.0-34.0); MCHC 31.8 G/DL (30.0-36.0); MCV 90.4 FL (86-99); PLATELET COUNT 55 K/uL (156-360); RBC DIS.WIDTH-CV 13.4 % (11.8-14.6); RBC DIS.WIDTH-SD 44.8 % (39-53); RED BLOOD COUNT 3.23 M/uL (4.00-5.50); WHITE BLOOD COUNT 11.4 K/uL (4.1-10.2)
[2017-02-04 09:06] LABS: ABS NEUTROPHIL COUNT 10.5; EOSINOPHIL ABS CT 0; INSTRUMENT ABS NEUTROPHIL CT 10.6 K/uL; LYMPHOCYTES 0.9 % (15.0-45.0); METAMYELOCYTES 4.3 %; MYELOCYTES 1.7 %; PLAT.SUFFICIENCY DECREASED; SMEAR EVALUATION YES; TOX.VACUOLIZATION 2+
[2017-02-04 09:08] LABS: BAND NEUTROPHILS 34.8 % (0-8.0); SEG.NEUTROPHILS 57.4 % (46.0-76.0)
[2017-02-04 12:47] LABS: POINT-OF-CARE METER ID UU14162636
[2017-02-04 17:26] LABS: POINT-OF-CARE METER ID UU13113731
[2017-02-04 19:59] LABS: ANION GAP 16 MEQ/L (2-14); CHLORIDE 106 MEQ/L (99-109); GFR ESTIMATE (CALCULATED) 31 mL/min/; POTASSIUM 3.6 MEQ/L (3.7-5.4); SAMPLE HEMOLYSIS CHECK 0; SAMPLE ICTERIC CHECK 0; SAMPLE LIPEMIA CHECK 0; SODIUM 139 MEQ/L (136-147); UREA NITROGEN (BUN) 43 mg/dL (9-23)
[2017-02-04 20:14] LABS: GLUCOSE 214 mg/dL (70-99)
[2017-02-05] VITALS (23 sets, daily range): BP systolic 93–143; BP diastolic 40–77
[2017-02-05 05:41] LABS: HEMATOCRIT 27.8 % (38.0-50.0); MCH 29.1 PG (29.0-34.0); MCHC 33.5 G/DL (30.0-36.0); MCV 86.9 FL (86-99); RBC DIS.WIDTH-CV 13.8 % (11.8-14.6); RBC DIS.WIDTH-SD 43.8 % (39-53); WHITE BLOOD COUNT 22.2 K/uL (4.1-10.2)
[2017-02-05 07:49] LABS: BAND NEUTROPHILS 22.5 % (0-8.0); BURR CELLS 1+; EOSINOPHIL ABS CT 0; INSTRUMENT ABS NEUTROPHIL CT 18.6 K/uL; LYMPHOCYTES 2.2 % (15.0-45.0); MEAN PLAT.VOLUME 12.1 uM^3 (9.0-12.4); PLATELET COUNT 48 K/uL (156-360); POIKILOCYTOSIS 1+; SEG.NEUTROPHILS 72.3 % (46.0-76.0)
[2017-02-05 07:50] LABS: PLAT.SUFFICIENCY DECREASED
[2017-02-05 08:52] LABS: ANION GAP 10 MEQ/L (2-14); CHLORIDE 108 MEQ/L (99-109); GFR ESTIMATE (CALCULATED) 33 mL/min/; GLUCOSE 195 mg/dL (70-99); MAGNESIUM 1.2 mg/dl (1.3-2.7); POTASSIUM 3.5 MEQ/L (3.7-5.4); SAMPLE HEMOLYSIS CHECK 0; SAMPLE ICTERIC CHECK 0; SAMPLE LIPEMIA CHECK 0; SODIUM 143 MEQ/L (136-147); UREA NITROGEN (BUN) 44 mg/dL (9-23)
[2017-02-05 23:30] LABS: POINT-OF-CARE METER ID UU14162636
[2017-02-06] VITALS (15 sets, daily range): BP systolic 97–138; BP diastolic 32–69
[2017-02-06 06:57] LABS: ANION GAP 9 MEQ/L (2-14); CHLORIDE 111 MEQ/L (99-109); GFR ESTIMATE (CALCULATED) 42 mL/min/; POTASSIUM 3.1 MEQ/L (3.7-5.4); SAMPLE HEMOLYSIS CHECK 0; SAMPLE ICTERIC CHECK 0; SAMPLE LIPEMIA CHECK 0; SODIUM 148 MEQ/L (136-147); UREA NITROGEN (BUN) 37 mg/dL (9-23)
[2017-02-06 07:11] LABS: GLUCOSE 92 mg/dL (70-99); MAGNESIUM 2.3 mg/dl (1.3-2.7)
[2017-02-06 07:21] LABS: HEMATOCRIT 26.6 % (38.0-50.0); MCH 29.2 PG (29.0-34.0); MCHC 33.1 G/DL (30.0-36.0); MCV 88.4 FL (86-99); RBC DIS.WIDTH-SD 45.1 % (39-53); RED BLOOD COUNT 3.01 M/uL (4.00-5.50); WHITE BLOOD COUNT 21.6 K/uL (4.1-10.2)
[2017-02-06 08:07] LABS: ABS NEUTROPHIL COUNT 20.8; ANISOCYTOSIS 1+; ATYPICAL LYMPHOCYTE 0.4 %; BAND NEUTROPHILS 15.1 % (0-8.0); BURR CELLS 1+; EOSINOPHIL ABS CT 0; IMM.PLATELET FRACTION 16.2 (1-7); INSTRUMENT ABS NEUTROPHIL CT 20.1 K/uL; LYMPHOCYTES 1.8 % (15.0-45.0); MEAN PLAT.VOLUME 12.9 uM^3 (9.0-12.4); METAMYELOCYTES 0.9 %; PLAT.SUFFICIENCY DECREASED; POIKILOCYTOSIS 2+; SEG.NEUTROPHILS 81.4 % (46.0-76.0); TOX.VACUOLIZATION 1+; TOXIC GRANULATION 1+
[2017-02-06 08:24] LABS: PLATELET COUNT 32 K/uL (156-360)
[2017-02-06 16:43] LABS: POINT-OF-CARE METER ID UU14174225
[2017-02-06 21:18] LABS: POINT-OF-CARE METER ID UU13113717
[2017-02-07 03:55] VITALS: BP 121/58
[2017-02-07 06:16] LABS: HEMATOCRIT 27.5 % (38.0-50.0); MCH 29.6 PG (29.0-34.0); MCHC 32.7 G/DL (30.0-36.0); MCV 90.5 FL (86-99); RBC DIS.WIDTH-CV 14.5 % (11.8-14.6); RBC DIS.WIDTH-SD 47.9 % (39-53); RED BLOOD COUNT 3.04 M/uL (4.00-5.50)
[2017-02-07 06:39] LABS: ANION GAP 10 MEQ/L (2-14); CHLORIDE 112 MEQ/L (99-109); GFR ESTIMATE (CALCULATED) 45 mL/min/; MAGNESIUM 2.3 mg/dl (1.3-2.7); SAMPLE HEMOLYSIS CHECK 0; SAMPLE ICTERIC CHECK 0; SAMPLE LIPEMIA CHECK 0; SODIUM 144 MEQ/L (136-147); UREA NITROGEN (BUN) 38 mg/dL (9-23)
[2017-02-07 06:43] LABS: GLUCOSE 146 mg/dL (70-99); POTASSIUM 4.1 MEQ/L (3.7-5.4)
[2017-02-07 07:26] LABS: ABS NEUTROPHIL COUNT 18.3; ANISOCYTOSIS 1+; BAND NEUTROPHILS 3.1 % (0-8.0); BURR CELLS 3+; EOSINOPHIL ABS CT 0; IMM.PLATELET FRACTION 15.6 (1-7); INSTRUMENT ABS NEUTROPHIL CT 17.3 K/uL; LYMPHOCYTES 4.4 % (15.0-45.0); MACROCYTES 1+; MEAN PLAT.VOLUME 13.4 uM^3 (9.0-12.4); PLAT.SUFFICIENCY DECREASED; PLATELET COUNT 32 K/uL (156-360); POIKILOCYTOSIS 3+; SEG.NEUTROPHILS 88.5 % (46.0-76.0)
[2017-02-07 08:23] VITALS: BP 100/54
[2017-02-07 12:27] LABS: POINT-OF-CARE METER ID UU14174225
[2017-02-07 14:28] VITALS: BP 110/62
[2017-02-07 17:08] LABS: POINT-OF-CARE METER ID UU14188625
[2017-02-07 19:45] VITALS: BP 124/59
[2017-02-07 23:45] VITALS: BP 115/57
[2017-02-08 04:28] VITALS: BP 126/61
[2017-02-08 08:58] LABS: POINT-OF-CARE METER ID UU13113717
[2017-02-08 09:49] LABS: BASOPHIL COUNT 0.1 K/uL (0-0.1); EOSINOPHIL (%) 2.1 % (0-5); EOSINOPHIL COUNT 0.3 K/uL (0-0.3); HEMATOCRIT 29.7 % (38.0-50.0); IMMATURE GRANULOCYTE (%) 0.9 % (0.0-0.7); IMMATURE GRANULOCYTE COUNT 0.1 K/uL; INSTRUMENT ABS NEUTROPHIL CT 10.5 K/uL; LYMPHOCYTE COUNT 1.5 K/uL (1.0-2.8); MCH 29.1 PG (29.0-34.0); MCV 90.8 FL (86-99); MONOCYTE (%) 7.9 % (3-12); MONOCYTE COUNT 1.1 K/uL (0-0.8); NEUTROPHIL (%) 77.9 % (45-76); NEUTROPHIL COUNT 10.5 K/uL (1.8-6.4); RBC DIS.WIDTH-CV 14.4 % (11.8-14.6); RBC DIS.WIDTH-SD 48.3 % (39-53); RED BLOOD COUNT 3.27 M/uL (4.00-5.50); WHITE BLOOD COUNT 13.4 K/uL (4.1-10.2)
[2017-02-08 10:32] LABS: ANION GAP 7 MEQ/L (2-14); CHLORIDE 112 MEQ/L (99-109); GFR ESTIMATE (CALCULATED) 53 mL/min/; GLUCOSE 119 mg/dL (70-99); POTASSIUM 4.4 MEQ/L (3.7-5.4); SAMPLE HEMOLYSIS CHECK 0; SAMPLE ICTERIC CHECK 0; SAMPLE LIPEMIA CHECK 0; SODIUM 141 MEQ/L (136-147); UREA NITROGEN (BUN) 30 mg/dL (9-23)
[2017-02-08 10:33] LABS: IMM.PLATELET FRACTION 16.9 (1-7); PLAT.SUFFICIENCY DECREASED; PLATELET COUNT 37 K/uL (156-360)
[2017-02-08 12:07] VITALS: BP 100/68
[2017-02-08 12:50] LABS: POINT-OF-CARE METER ID UU13113717
[2017-02-08 15:37] VITALS: BP 102/58
[2017-02-08 20:00] VITALS: BP 116/40
[2017-02-08 23:49] VITALS: BP 132/62
[2017-02-09 03:42] VITALS: BP 119/58
[2017-02-09 06:34] LABS: EOSINOPHIL (%) 2.4 % (0-5); EOSINOPHIL COUNT 0.3 K/uL (0-0.3); HEMATOCRIT 29.7 % (38.0-50.0); IMMATURE GRANULOCYTE (%) 1.4 % (0.0-0.7); IMMATURE GRANULOCYTE COUNT 0.2 K/uL; INSTRUMENT ABS NEUTROPHIL CT 8.7 K/uL; LYMPHOCYTE COUNT 1.6 K/uL (1.0-2.8); MCH 29.7 PG (29.0-34.0); MCHC 32.3 G/DL (30.0-36.0); MONOCYTE (%) 7.5 % (3-12); MONOCYTE COUNT 0.9 K/uL (0-0.8); NEUTROPHIL (%) 74.8 % (45-76); NEUTROPHIL COUNT 8.7 K/uL (1.8-6.4); RBC DIS.WIDTH-CV 14.2 % (11.8-14.6); RED BLOOD COUNT 3.23 M/uL (4.00-5.50); WHITE BLOOD COUNT 11.7 K/uL (4.1-10.2)
[2017-02-09 07:10] LABS: ANION GAP 3 MEQ/L (2-14); CHLORIDE 109 MEQ/L (99-109); GFR ESTIMATE (CALCULATED) 57 mL/min/; GLUCOSE 102 mg/dL (70-99); POTASSIUM 4.1 MEQ/L (3.7-5.4); SAMPLE HEMOLYSIS CHECK 0; SAMPLE ICTERIC CHECK 0; SAMPLE LIPEMIA CHECK 0; SODIUM 137 MEQ/L (136-147); UREA NITROGEN (BUN) 28 mg/dL (9-23)
[2017-02-09 07:31] LABS: IMM.PLATELET FRACTION 13.8 (1-7); MAGNESIUM 1.8 mg/dl (1.3-2.7); MEAN PLAT.VOLUME 12.6 uM^3 (9.0-12.4); PLAT.SUFFICIENCY DECREASED
[2017-02-09 07:34] LABS: PLATELET COUNT 49 K/uL (156-360)
[2017-02-09 08:10] VITALS: BP 128/60
[2017-02-09 11:56] LABS: POINT-OF-CARE METER ID UU13113717
[2017-02-09 12:04] VITALS: BP 136/62
[2017-02-09 16:19] VITALS: BP 127/58
[2017-02-09 17:03] LABS: POINT-OF-CARE METER ID UU13113717
[2017-02-09 19:34] VITALS: BP 138/63
[2017-02-10] VITALS: BP 131/60
[2017-02-10 04:00] VITALS: BP 125/56
[2017-02-10 06:13] LABS: ANION GAP 5 MEQ/L (2-14); CHLORIDE 108 MEQ/L (99-109); GFR ESTIMATE (CALCULATED) > 59 mL/min/; GLUCOSE 176 mg/dL (70-99); POTASSIUM 4.3 MEQ/L (3.7-5.4); SAMPLE HEMOLYSIS CHECK 0; SAMPLE ICTERIC CHECK 0; SAMPLE LIPEMIA CHECK 0; SODIUM 138 MEQ/L (136-147); UREA NITROGEN (BUN) 20 mg/dL (9-23)
[2017-02-10 06:19] LABS: MCH 27.9 PG (29.0-34.0); MCHC 30.9 G/DL (30.0-36.0); MCV 90.1 FL (86-99); MEAN PLAT.VOLUME 11.5 uM^3 (9.0-12.4); NRBC (%) 0.2 /100 WBC (0-0); RBC DIS.WIDTH-CV 13.7 % (11.8-14.6); RED BLOOD COUNT 3.55 M/uL (4.00-5.50); WHITE BLOOD COUNT 12.3 K/uL (4.1-10.2)
[2017-02-10 06:21] LABS: PLATELET COUNT 75 K/uL (156-360)
[2017-02-10 06:36] LABS: ABS NEUTROPHIL COUNT 10.9; EOSINOPHIL ABS CT 0.2; EOSINOPHILS 1.8 % (0-5.0); INSTRUMENT ABS NEUTROPHIL CT 8.9 K/uL; NUCLEATED RBC'S 1.8; PLAT.SUFFICIENCY DECREASED; SEG.NEUTROPHILS 88.4 % (46.0-76.0)
[2017-02-10 07:37] VITALS: BP 136/74
[2017-02-10 11:15] VITALS: BP 131/73
[2017-02-10 11:35] LABS: POINT-OF-CARE METER ID UU14174225
[2017-02-10] MEDS ORDERED: VANCOCIN HCL125 MG PO (11:36)
[2017-02-10] MEDS ORDERED: PRAVASTATIN SOD40 MG PO (11:38)
[2017-02-10] MEDS ORDERED: FAMOTIDINE20 MG PO (11:42)
[2017-02-10] MEDS ORDERED: MIDODRINE HCL5 MG PO (11:42)
[2017-02-10] MEDS ORDERED: NOVOLOG PE100 UNITS/ SC (11:44)
== END 2017-02-10 18:18 | DRG 64 ==
LOC: EME → EDBD 21:41 → EME 21:41 → 5SOUTH 02-02 00:48 → 4WEST 02-02 00:48 → EDOF 02-02 00:48 → 5SOUTH 02-02 02:45 → 4WEST 02-03 22:13 → 5SOUTH 02-06 15:48
PROVIDERS: Emergency Medicine; Hospitalist; Internal Medicine; Internal Medicine Nephrology; Internal Medicine Pulmonary Disease
DX: I63.441 Cerebral infarction due to embolism of right cerebellar artery (principal); A41.4 Sepsis due to anaerobes; N17.0 Acute kidney failure with tubular necrosis; G81.90 Hemiplegia, unspecified affecting unspecified side; E87.2 Acidosis; E87.0 Hyperosmolality and hypernatremia; A04.7 Enterocolitis due to Clostridium difficile; Z51.5 Encounter for palliative care; Z66 Do not resuscitate; N13.30 Unspecified hydronephrosis; N13.8 Other obstructive and reflux uropathy; I12.9 Hypertensive chronic kidney disease with stage 1 through stage 4 chronic kidney disease, or unspecified chronic kidney disease; I25.10 Atherosclerotic heart disease of native coronary artery without angina pectoris; I65.23 Occlusion and stenosis of bilateral carotid arteries; Z16.24 Resistance to multiple antibiotics; K21.0 Gastro-esophageal reflux disease with esophagitis; N18.3 Chronic kidney disease, stage 3 (moderate); K59.00 Constipation, unspecified; K80.20 Calculus of gallbladder without cholecystitis without obstruction; N40.1 Benign prostatic hyperplasia with lower urinary tract symptoms; N30.90 Cystitis, unspecified without hematuria; R33.8 Other retention of urine; F17.290 Nicotine dependence, other tobacco product, uncomplicated; D64.9 Anemia, unspecified; E11.22 Type 2 diabetes mellitus with diabetic chronic kidney disease; E78.5 Hyperlipidemia, unspecified; E83.39 Other disorders of phosphorus metabolism; E83.42 Hypomagnesemia; E87.6 Hypokalemia; I67.89 Other cerebrovascular disease; M54.12 Radiculopathy, cervical region; B96.20 Unspecified Escherichia coli [E. coli] as the cause of diseases classified elsewhere; R29.6 Repeated falls; Z59.0 Homelessness; Z79.4 Long term (current) use of insulin; Z79.84 Long term (current) use of oral hypoglycemic drugs
CPT/HCPCS: 70450; 70547; 70551; 71010; 71020; 74176; 76770; 80048; 80048 91; 80053; 80061; 80069; 81003; 82533 91; 82948; 83036; 83605; 83735; 84100; 84484; 85007; 85014; 85018; 85025; 85025 91; 85027; 85060; 85610; 85730; 86900; 86901; 87040; 87077; 87081; 87086; 87186; 87493; 87641; 92523 GN; 92610 GN; 93005; 93306; 93880; 94799; 97530 GP; 99281; 99285; J0696; J1335; J1644; J1815; J2405; J3475; J7030; J7050; J7070; J7120; P9045; S0030

== ENCOUNTER 2017-04-12 20:42 | Inpatient (IN) | payer OTHER ==
[~2017-04-12] VITALS: Ht 170.2 cm; Wt 58.8 kg
[~2017-04-12 20:42] MED LIST changes: +ASPIR 8181 M1 PO; +FUROSEMIDE20 MG PO; +MIDODRINE HCL5 MG PO; +PRAVASTATIN SOD40 MG PO; +VANCOCIN HCL125 MG PO
[2017-04-12 21:09] LABS: EOSINOPHIL (%) 0.5 % (0-5); HEMATOCRIT 39.1 % (38.0-50.0); IMMATURE GRANULOCYTE (%) 0.5 % (0.0-0.7); INSTRUMENT ABS NEUTROPHIL CT 5.9 K/uL; LYMPHOCYTE COUNT 1.4 K/uL (1.0-2.8); MCH 28.1 PG (29.0-34.0); MCHC 32.2 G/DL (30.0-36.0); MCV 87.3 FL (86-99); MONOCYTE (%) 7.9 % (3-12); MONOCYTE COUNT 0.6 K/uL (0-0.8); NEUTROPHIL (%) 73.1 % (45-76); NEUTROPHIL COUNT 5.9 K/uL (1.8-6.4); RBC DIS.WIDTH-CV 13.4 % (11.8-14.6); RBC DIS.WIDTH-SD 42.7 % (39-53); RED BLOOD COUNT 4.48 M/uL (4.00-5.50); WHITE BLOOD COUNT 8.1 K/uL (4.1-10.2)
[2017-04-12 21:11] LABS: PLATELET COUNT 210 K/uL (156-360)
[2017-04-12 21:16] LABS: AMYLASE 13 IU/L (1-118); CHLORIDE 103 mEq/L (99-109); POTASSIUM 3.8 mEq/L (3.7-5.4); SODIUM 137 mEq/L (136-147)
[2017-04-12 21:18] LABS: GLUCOSE 198 mg/dL (70-99)
[2017-04-12 21:20] LABS: ANION GAP 11 MEQ/L (2-14)
[2017-04-12 21:21] LABS: PTT 25.5 SEC (25-37); SERUM ETHYL ALCOHOL < 10 mg/dL
[2017-04-12 21:22] LABS: GFR ESTIMATE (CALCULATED) 24 mL/min/
[2017-04-12 21:23] LABS: UREA NITROGEN (BUN) 44 mg/dL (9-23)
[2017-04-12 21:25] LABS: LIPASE 2 U/L (1.0-51.0)
[2017-04-12 21:28] LABS: TROP-I INTERPRETATION NEGATIVE; TROPONIN-I < 0.01 ng/mL (0.0-0.30)
[2017-04-12] MEDS ORDERED: LOW DOSE ASPIRI81 M1 PO (23:14)
[2017-04-12] MEDS ORDERED: LIPITOR10 MG PO (23:15)
[2017-04-12] MEDS ORDERED: PROSCAR5 MG PO (23:16)
[2017-04-12] MEDS ORDERED: JANUVIA25 M1 PO (23:16)
[2017-04-12] MEDS ORDERED: KLOR-CON SPRIN10 MEQ PO (23:17)
[2017-04-12] MEDS ORDERED: METAMUCIL PACKE1 PKT PO (23:18)
[2017-04-12] MEDS ORDERED: FLOMAX0.4 MG PO (23:19)
[2017-04-12] MEDS ORDERED: ZANTAC150 MG PO (23:19)
[2017-04-12] MEDS ORDERED: CRANBERRY425 MG PO (23:19)
[2017-04-12] MEDS ORDERED: ULTRAM50 MG PO (23:21)
[2017-04-12] MEDS ORDERED: DULCOLAX10 MG PR (23:23)
[2017-04-12] MEDS ORDERED: FLEET ENEMA-AD118 ML PR (23:24)
[2017-04-12] MEDS ORDERED: IMODIUM A-D2 M2 PO (23:24)
[2017-04-12] MEDS ORDERED: MILK OF MAGN PO (23:27)
[2017-04-12] MEDS ORDERED: TYLENOL ARTHRI650 MG PO (23:28)
[2017-04-13] VITALS (7 sets, daily range): BP systolic 133–181; BP diastolic 61–78
[2017-04-13 12:12] LABS: POINT-OF-CARE METER ID UU14188625
[2017-04-13 12:55] LABS: ALKALINE PHOSPHATASE 65 IU/L (3-129); ANION GAP 13 MEQ/L (2-14); CHLORIDE 103 MEQ/L (99-109); GFR ESTIMATE (CALCULATED) 30 mL/min/; GLUCOSE 216 mg/dL (70-99); HDL CHOLESTEROL 35 MG/DL (Desirable>=40); LDL CHOLESTEROL 53 mg/dL (Desirable<100); NON-HDL CHOLESTEROL 88 mg/dL (Desirable<160); POTASSIUM 4.2 MEQ/L (3.7-5.4); SAMPLE HEMOLYSIS CHECK 1; SAMPLE ICTERIC CHECK 0; SAMPLE LIPEMIA CHECK 0; SODIUM 143 MEQ/L (136-147); TOTAL BILIRUBIN 0.4 MG/DL (0.0-1.0); TOTAL CHOLESTEROL 123 mg/dL (Desirable<200); TRIGLYCERIDES 177 MG/DL (Normal: <150); UREA NITROGEN (BUN) 46 mg/dL (9-23)
[2017-04-13 13:57] LABS: Estimated Average Glucose 146 mg/dL (70-123); HEMOGLOBIN A1c (GLYCOHEMOGLOB) 6.7 % HGB (Below 5.7)
[2017-04-13 17:06] LABS: POINT-OF-CARE METER ID UU14188625
[2017-04-13 17:10] LABS: C DIFF TOXIN POSITIVE (NEGATIVE)
[2017-04-13 17:24] LABS: PROBE CHECK PASS
[2017-04-14 03:45] VITALS: BP 173/75
[2017-04-14 07:51] VITALS: BP 178/80
[2017-04-14 07:54] LABS: POINT-OF-CARE METER ID UU13113717
[2017-04-14 10:48] LABS: ANION GAP 11 MEQ/L (2-14); CHLORIDE 107 MEQ/L (99-109); POTASSIUM 4.2 MEQ/L (3.7-5.4); SAMPLE HEMOLYSIS CHECK 2; SAMPLE ICTERIC CHECK 0; SAMPLE LIPEMIA CHECK 0; SODIUM 143 MEQ/L (136-147)
[2017-04-14 10:53] LABS: GFR ESTIMATE (CALCULATED) 35 mL/min/; GLUCOSE 229 mg/dL (70-99); UREA NITROGEN (BUN) 42 mg/dL (9-23)
[2017-04-14 11:44] LABS: ADD MIUA? YES; BILIRUBIN NEGATIVE; BLOOD SMALL; COLOR YELLOW ((YELLOW)); GLUCOSE (STRIP) 50; KETONES NEGATIVE; LEUKOCYTES LARGE; NITRITE POSITIVE; PROTEIN (STRIP) 100; SPECIFIC GRAVITY 1.018 (1.000-1.030); UROBILINOGEN 0.2 MG/DL (0.2-1.0)
[2017-04-14 11:53] LABS: BACTERIA 2+ /HPF; CASTS NONE SEEN /LPF; EPITHELIAL CELLS NONE SEEN /HPF; MUCUS NONE SEEN /LPF; RED BLOOD CELLS NONE SEEN /HPF (0-5); WHITE BLOOD CELLS TNTC /HPF (0-5)
[2017-04-14 11:54] LABS: CRYSTALS PRESENT
[2017-04-14 12:14] VITALS: BP 168/74
[2017-04-14 15:54] VITALS: BP 162/72
[2017-04-14 17:06] LABS: POINT-OF-CARE METER ID UU13113717
[2017-04-14 19:48] VITALS: BP 187/74
[2017-04-14 21:45] LABS: POINT-OF-CARE METER ID UU14188625
[2017-04-14 23:38] VITALS: BP 198/87
[2017-04-15 04:30] VITALS: BP 181/79
[2017-04-15 08:12] LABS: POINT-OF-CARE METER ID UU14188625
[2017-04-15 08:23] VITALS: BP 167/78
[2017-04-15 10:35] LABS: ANION GAP 12 MEQ/L (2-14); CHLORIDE 110 MEQ/L (99-109); POTASSIUM 4.9 MEQ/L (3.7-5.4); SAMPLE HEMOLYSIS CHECK 1; SAMPLE ICTERIC CHECK 0; SAMPLE LIPEMIA CHECK 0; SODIUM 146 MEQ/L (136-147)
[2017-04-15 10:41] LABS: GFR ESTIMATE (CALCULATED) 45 mL/min/; GLUCOSE 259 mg/dL (70-99); UREA NITROGEN (BUN) 38 mg/dL (9-23)
[2017-04-15 12:16] VITALS: BP 143/66
[2017-04-15 16:08] VITALS: BP 174/68
[2017-04-15 19:42] VITALS: BP 170/52
[2017-04-15 23:33] VITALS: BP 175/68
[2017-04-16 03:39] VITALS: BP 162/69
[2017-04-16 07:35] VITALS: BP 140/64
[2017-04-16 07:39] LABS: POINT-OF-CARE METER ID UU13113717
[2017-04-16 11:14] LABS: POINT-OF-CARE METER ID UU13113717
[2017-04-16 15:12] VITALS: BP 160/84
[2017-04-16 21:51] LABS: POINT-OF-CARE METER ID UU14188625
[2017-04-17] VITALS: BP 160/68
[2017-04-17 07:30] VITALS: BP 180/78
[2017-04-17 11:10] LABS: POINT-OF-CARE METER ID UU13113717
[2017-04-17 12:46] LABS: POINT-OF-CARE METER ID UU14188625
[2017-04-17 15:38] VITALS: BP 180/70
[2017-04-17 16:35] LABS: POINT-OF-CARE METER ID UU14188625
[2017-04-17 21:48] LABS: POINT-OF-CARE METER ID UU13113717
[2017-04-17 23:44] VITALS: BP 148/67
[2017-04-18 03:26] LABS: POINT-OF-CARE METER ID UU14188625
[2017-04-18 07:07] LABS: HEMATOCRIT 38.8 % (38.0-50.0); MCH 27.7 PG (29.0-34.0); MCHC 31.2 G/DL (30.0-36.0); MCV 88.8 FL (86-99); PLATELET COUNT 185 K/uL (156-360); RBC DIS.WIDTH-CV 13.4 % (11.8-14.6); RBC DIS.WIDTH-SD 43.5 % (39-53); RED BLOOD COUNT 4.37 M/uL (4.00-5.50); WHITE BLOOD COUNT 11.3 K/uL (4.1-10.2)
[2017-04-18 07:38] LABS: ALKALINE PHOSPHATASE 55 IU/L (3-129); ANION GAP 7 MEQ/L (2-14); CHLORIDE 118 MEQ/L (99-109); GFR ESTIMATE (CALCULATED) 57 mL/min/; GLUCOSE 117 mg/dL (70-99); POTASSIUM 3.6 MEQ/L (3.7-5.4); SAMPLE HEMOLYSIS CHECK 0; SAMPLE ICTERIC CHECK 0; SAMPLE LIPEMIA CHECK 0; SODIUM 149 MEQ/L (136-147); TOTAL BILIRUBIN 0.3 MG/DL (0.0-1.0); UREA NITROGEN (BUN) 25 mg/dL (9-23)
[2017-04-18 08:14] VITALS: BP 186/68
[2017-04-18] MEDS ORDERED: METRONIDAZOLE500 MG PO (11:40)
[2017-04-18 20:02] VITALS: BP 102/43
[2017-04-18 20:45] VITALS: BP 130/46
[2017-04-18 21:02] LABS: POINT-OF-CARE METER ID UU14188625; POINT-OF-CARE USER ID 603211116
[2017-04-19 00:02] VITALS: BP 170/62
[2017-04-19 03:35] VITALS: BP 180/63
[2017-04-19 04:34] VITALS: BP 152/60
[2017-04-19 07:08] LABS: ALKALINE PHOSPHATASE 66 IU/L (3-129); ANION GAP 9 MEQ/L (2-14); CHLORIDE 117 MEQ/L (99-109); GFR ESTIMATE (CALCULATED) 48 mL/min/; SAMPLE HEMOLYSIS CHECK 0; SAMPLE ICTERIC CHECK 0; SAMPLE LIPEMIA CHECK 0; SODIUM 147 MEQ/L (136-147); UREA NITROGEN (BUN) 27 mg/dL (9-23)
[2017-04-19 07:26] LABS: GLUCOSE 246 mg/dL (70-99); TOTAL BILIRUBIN 0.2 MG/DL (0.0-1.0)
[2017-04-19 08:00] VITALS: BP 188/78
[2017-04-19] MEDS ORDERED: FLAGYL500 MG PO (08:16)
[2017-04-19 08:56] LABS: POINT-OF-CARE METER ID UU13113717
== END 2017-04-19 11:00 | DRG 65 ==
LOC: EME → EDBD 20:42 → 5SOUTH 22:50 → EDOF 22:50 → ENRESERV 23:08 → 5SOUTH 04-13 00:41
PROVIDERS: Emergency Medicine; Family Medicine; Internal Medicine
DX: I63.9 Cerebral infarction, unspecified (principal); N17.9 Acute kidney failure, unspecified; I12.9 Hypertensive chronic kidney disease with stage 1 through stage 4 chronic kidney disease, or unspecified chronic kidney disease; N18.3 Chronic kidney disease, stage 3 (moderate); E11.22 Type 2 diabetes mellitus with diabetic chronic kidney disease; A04.7 Enterocolitis due to Clostridium difficile; E44.1 Mild protein-calorie malnutrition; Z68.20 Body mass index [BMI] 20.0-20.9, adult; I65.22 Occlusion and stenosis of left carotid artery; G81.91 Hemiplegia, unspecified affecting right dominant side; R29.810 Facial weakness; N40.1 Benign prostatic hyperplasia with lower urinary tract symptoms; R47.81 Slurred speech; R41.82 Altered mental status, unspecified; I69.354 Hemiplegia and hemiparesis following cerebral infarction affecting left non-dominant side; R33.8 Other retention of urine; R13.10 Dysphagia, unspecified; E78.5 Hyperlipidemia, unspecified; F17.200 Nicotine dependence, unspecified, uncomplicated; Z79.82 Long term (current) use of aspirin; Z86.718 Personal history of other venous thrombosis and embolism
CPT/HCPCS: 70450; 74230; 80048; 80053; 80061; 81003; 82150; 82948; 83036; 83690; 84484; 85025; 85027; 85610; 85730; 86850; 86900; 86901; 87086; 87493; 92526 GN; 92610 GN; 92611 GN; 93005; 97530 GO; 97530 GP; 99281; 99285; G0480; J1644; J1815; J7030

== ENCOUNTER 2017-04-30 11:08 | Inpatient (IN) | payer OTHER ==
[~2017-04-30] VITALS: Ht 170.2 cm; Wt 64.4 kg
[2017-04-30] VITALS (10 sets, daily range): BP systolic 70–158; BP diastolic 48–151
[~2017-04-30 11:08] MED LIST changes: +CRANBERRY425 MG PO; +DULCOLAX10 MG PR; +FLAGYL500 MG PO; +FLEET ENEMA-AD118 ML PR; +FLOMAX0.4 MG PO; +IMODIUM A-D2 M2 PO; +KLOR-CON SPRIN10 MEQ PO; +LIPITOR10 MG PO; +LOW DOSE ASPIRI81 M1 PO; +METAMUCIL PACKE1 PKT PO; +METRONIDAZOLE500 MG PO; +MILK OF MAGN PO; +PROSCAR5 MG PO; +ULTRAM50 MG PO; +ZANTAC150 MG PO
[2017-04-30 11:59] LABS: HEMATOCRIT 37.7 % (38.0-50.0); MCH 28.3 PG (29.0-34.0); MCHC 31.6 G/DL (30.0-36.0); MCV 89.8 FL (86-99); MEAN PLAT.VOLUME 11.1 uM^3 (9.0-12.4); PLATELET COUNT 191 K/uL (156-360); RBC DIS.WIDTH-CV 13.8 % (11.8-14.6); RBC DIS.WIDTH-SD 45.1 % (39-53); WHITE BLOOD COUNT 8.1 K/uL (4.1-10.2)
[2017-04-30 12:02] LABS: BASE EXCESS -6.8 mEq/L (-3 to +3); CARBOXY HGB 1.4 % (0-5); METHEMOGLOBIN 1.4 % (0-1.5); PCO2 27 mm Hg (35-45)
[2017-04-30 12:03] LABS: BICARBONATE 16.7 mEq/L (22-26); COMMENTS - BLOOD GASES A+C+; DEVICE AMBU TO ETT; O2 FLOW 15 L/MIN; PO2 543 mm Hg (80-100); SITE LR
[2017-04-30 12:09] LABS: ADD MIUA? YES; BILIRUBIN NEGATIVE; BLOOD MODERATE; COLOR AMBER ((YELLOW)); GLUCOSE (STRIP) 50; KETONES NEGATIVE; LEUKOCYTES LARGE; NITRITE POSITIVE; PROTEIN (STRIP) 100; SPECIFIC GRAVITY 1.015 (1.000-1.030); UROBILINOGEN 0.2 MG/DL (0.2-1.0)
[2017-04-30 12:10] LABS: CHLORIDE 106 mEq/L (99-109); POTASSIUM 4.5 mEq/L (3.7-5.4); SODIUM 141 mEq/L (136-147)
[2017-04-30 12:12] LABS: GLUCOSE 354 mg/dL (70-99)
[2017-04-30 12:13] LABS: ANION GAP 16 MEQ/L (2-14)
[2017-04-30 12:16] LABS: GFR ESTIMATE (CALCULATED) 33 mL/min/
[2017-04-30 12:21] LABS: TROP-I INTERPRETATION NEGATIVE; TROPONIN-I 0.01 ng/mL (0.0-0.30)
[2017-04-30 12:38] LABS: ABS NEUTROPHIL COUNT 7.6; BAND NEUTROPHILS 22.3 % (0-8.0); BASOPHILS 0.9 %; EOSINOPHIL ABS CT 0; INSTRUMENT ABS NEUTROPHIL CT 7.6 K/uL; LYMPHOCYTES 3.6 % (15.0-45.0); METAMYELOCYTES 0.9 %; MYELOCYTES 0.9 %; OVALOCYTES 1+; PLAT.SUFFICIENCY ADEQUATE; SEG.NEUTROPHILS 71.4 % (46.0-76.0)
[2017-04-30 12:46] LABS: BACTERIA 1+ /HPF; EPITHELIAL CELLS RARE /HPF; GRANULAR CASTS 0-5 /LPF; MUCUS NONE SEEN /LPF; RED BLOOD CELLS 15-20 /HPF (0-5); UCUL ADDED? YES; WHITE BLOOD CELLS 30-40 /HPF (0-5)
[2017-04-30 12:47] LABS: TOTAL BILIRUBIN 0.8 mg/dL (0.0-1.0)
[2017-04-30 12:48] LABS: ALKALINE PHOSPHATASE 91 IU/L (3-129)
[2017-04-30 12:51] LABS: DIRECT BILIRUBIN 0.5 mg/dL (0.0-0.3); INTER. NORMALIZED RATIO 1.1; PROTHROMBIN TIME 11.8 SEC (10.2-12.9)
[2017-04-30 12:52] LABS: LIPASE 26 U/L (1.0-51.0)
[2017-04-30 12:54] LABS: PTT 23.3 SEC (25-37)
[2017-04-30] MEDS ORDERED: [UNRECOGNIZED DRUG - OTHER] PO (13:12)
[2017-04-30 14:06] LABS: UREA NITROGEN (BUN) 34 mg/dL (9-23)
[2017-04-30 18:07] LABS: HDL CHOLESTEROL 27 MG/DL (Desirable>=40); LDL CHOLESTEROL 49 mg/dL (Desirable<100); NON-HDL CHOLESTEROL 96 mg/dL (Desirable<160); TOTAL CHOLESTEROL 123 mg/dL (Desirable<200); TRIGLYCERIDES 234 MG/DL (Normal: <150)
[2017-04-30 18:39] LABS: METH RESISTANT S AUREUS PCR POSITIVE (NEGATIVE)
[2017-04-30 18:43] LABS: PROBE CHECK PASS; SPECIMEN PROCESSING CONTROL PASS
[2017-04-30 19:05] LABS: Estimated Average Glucose 157 mg/dL (70-123); HEMOGLOBIN A1c (GLYCOHEMOGLOB) 7.1 % HGB (Below 5.7)
[2017-04-30 19:57] LABS: POINT-OF-CARE METER ID UU14314082
[2017-05-01] VITALS (26 sets, daily range): BP systolic 0–168; BP diastolic 0–80
[2017-05-01 01:02] LABS: POINT-OF-CARE METER ID UU14314082
[2017-05-01 05:42] LABS: INTER. NORMALIZED RATIO 1.3; PROTHROMBIN TIME 14.8 SEC (10.2-12.9)
[2017-05-01 05:52] LABS: HEMATOCRIT 34.9 % (38.0-50.0); MCH 29.4 PG (29.0-34.0); MCHC 32.4 G/DL (30.0-36.0); MCV 90.9 FL (86-99); RBC DIS.WIDTH-CV 14.3 % (11.8-14.6); RBC DIS.WIDTH-SD 47.5 % (39-53); RED BLOOD COUNT 3.84 M/uL (4.00-5.50); WHITE BLOOD COUNT 20.3 K/uL (4.1-10.2)
[2017-05-01 06:17] LABS: POINT-OF-CARE METER ID UU13113731
[2017-05-01 06:26] LABS: ALKALINE PHOSPHATASE 63 IU/L (3-129); ANION GAP 12 MEQ/L (2-14); CHLORIDE 112 MEQ/L (99-109); GFR ESTIMATE (CALCULATED) 45 mL/min/; GLUCOSE 130 mg/dL (70-99); POTASSIUM 4.3 MEQ/L (3.7-5.4); SAMPLE HEMOLYSIS CHECK 0; SAMPLE ICTERIC CHECK 0; SAMPLE LIPEMIA CHECK 0; SODIUM 143 MEQ/L (136-147); TOTAL BILIRUBIN 0.4 MG/DL (0.0-1.0); UREA NITROGEN (BUN) 31 mg/dL (9-23)
[2017-05-01 07:14] LABS: MEAN PLAT.VOLUME 11.5 uM^3 (9.0-12.4); PLAT.SUFFICIENCY DECREASED
[2017-05-01 07:28] LABS: PLATELET COUNT 127 K/uL (156-360)
[2017-05-01 11:17] LABS: POINT-OF-CARE METER ID UU13113748
[2017-05-01 11:56] LABS: MAGNESIUM 1.5 mg/dl (1.3-2.7)
[2017-05-01 17:44] LABS: POINT-OF-CARE METER ID UU13113748
[2017-05-02] VITALS (20 sets, daily range): BP systolic 122–180; BP diastolic 41–70
[2017-05-02 00:18] LABS: POINT-OF-CARE METER ID UU13113731
[2017-05-02 06:09] LABS: POINT-OF-CARE METER ID UU13113748
[2017-05-02 10:44] LABS: C DIFF TOXIN POSITIVE (NEGATIVE)
[2017-05-02 10:45] LABS: PROBE CHECK PASS
[2017-05-02 11:39] LABS: MCH 28.5 PG (29.0-34.0); RBC DIS.WIDTH-CV 14.2 % (11.8-14.6); RED BLOOD COUNT 3.37 M/uL (4.00-5.50); WHITE BLOOD COUNT 17.2 K/uL (4.1-10.2)
[2017-05-02 12:00] LABS: ANION GAP 7 MEQ/L (2-14); CHLORIDE 112 MEQ/L (99-109); POTASSIUM 4.1 MEQ/L (3.7-5.4); SAMPLE HEMOLYSIS CHECK 0; SAMPLE ICTERIC CHECK 0; SAMPLE LIPEMIA CHECK 0; SODIUM 140 MEQ/L (136-147)
[2017-05-02 12:01] LABS: ABS NEUTROPHIL COUNT 16.4; BAND NEUTROPHILS 5.3 % (0-8.0); EOSINOPHIL ABS CT 0.3; EOSINOPHILS 1.8 % (0-5.0); INSTRUMENT ABS NEUTROPHIL CT 12.8 K/uL; LYMPHOCYTES 2.6 % (15.0-45.0); MEAN PLAT.VOLUME 11.9 uM^3 (9.0-12.4); PLAT.SUFFICIENCY DECREASED; SEG.NEUTROPHILS 90.3 % (46.0-76.0); SMUDGE CELLS 4.4
[2017-05-02 12:06] LABS: GFR ESTIMATE (CALCULATED) > 59 mL/min/; GLUCOSE 171 mg/dL (70-99); UREA NITROGEN (BUN) 23 mg/dL (9-23)
[2017-05-02 12:12] LABS: PLATELET COUNT 88 K/uL (156-360)
[2017-05-02 13:14] LABS: POINT-OF-CARE METER ID UU13113748
[2017-05-02 14:51] LABS: BASE EXCESS -0.6 mEq/L (-3 to +3); BICARBONATE 22.6 mEq/L (22-26); CARBOXY HGB 1.2 % (0-5); COMMENTS - BLOOD GASES C+; DEVICE VENT; FI02 30 %; METHEMOGLOBIN 1.7 % (0-1.5); MODE TC; PCO2 31 mm Hg (35-45); PEEP 5 CM/H20; PO2 136 mm Hg (80-100); SITE LR; TOTAL RESP RATE 20 resp/min; pH 7.47 (7.35-7.45)
[2017-05-02 18:02] LABS: POINT-OF-CARE METER ID UU13113748
[2017-05-03] VITALS (14 sets, daily range): BP systolic 118–187; BP diastolic 48–71
[2017-05-03 00:22] LABS: POINT-OF-CARE METER ID UU13113748
[2017-05-03 06:19] LABS: POINT-OF-CARE METER ID UU13113731
[2017-05-03 09:05] LABS: BASOPHIL COUNT 0.1 K/uL (0-0.1); EOSINOPHIL (%) 1.4 % (0-5); EOSINOPHIL COUNT 0.2 K/uL (0-0.3); HEMATOCRIT 29.2 % (38.0-50.0); IMMATURE GRANULOCYTE (%) 0.6 % (0.0-0.7); IMMATURE GRANULOCYTE COUNT 0.1 K/uL; LYMPHOCYTE COUNT 1.6 K/uL (1.0-2.8); MCH 28.1 PG (29.0-34.0); MCHC 31.5 G/DL (30.0-36.0); MCV 89.3 FL (86-99); MEAN PLAT.VOLUME 11.9 uM^3 (9.0-12.4); MONOCYTE (%) 3.1 % (3-12); MONOCYTE COUNT 0.4 K/uL (0-0.8); NEUTROPHIL (%) 81.3 % (45-76); PLATELET COUNT 94 K/uL (156-360); RBC DIS.WIDTH-SD 45.5 % (39-53); RED BLOOD COUNT 3.27 M/uL (4.00-5.50); WHITE BLOOD COUNT 12.3 K/uL (4.1-10.2)
[2017-05-03 09:12] LABS: PROTHROMBIN TIME 11.4 SEC (10.2-12.9)
[2017-05-03 09:14] LABS: PTT 26.3 SEC (25-37)
[2017-05-03 09:59] LABS: ANION GAP 6 MEQ/L (2-14); CHLORIDE 111 MEQ/L (99-109); GFR ESTIMATE (CALCULATED) > 59 mL/min/; GLUCOSE 191 mg/dL (70-99); POTASSIUM 4.1 MEQ/L (3.7-5.4); SAMPLE HEMOLYSIS CHECK 0; SAMPLE ICTERIC CHECK 0; SAMPLE LIPEMIA CHECK 0; SODIUM 139 MEQ/L (136-147); UREA NITROGEN (BUN) 18 mg/dL (9-23)
[2017-05-03 12:03] LABS: POINT-OF-CARE METER ID UU13113731
[2017-05-03 18:05] LABS: POINT-OF-CARE METER ID UU13113731
[2017-05-03 23:48] LABS: POINT-OF-CARE METER ID UU14208751
[2017-05-04] VITALS (9 sets, daily range): BP systolic 136–189; BP diastolic 48–76
[2017-05-04 05:51] LABS: POINT-OF-CARE METER ID UU13113731
[2017-05-04 07:19] LABS: BASOPHIL COUNT 0.1 K/uL (0-0.1); EOSINOPHIL (%) 2.5 % (0-5); EOSINOPHIL COUNT 0.3 K/uL (0-0.3); HEMATOCRIT 30.4 % (38.0-50.0); IMMATURE GRANULOCYTE (%) 1.5 % (0.0-0.7); IMMATURE GRANULOCYTE COUNT 0.2 K/uL; INSTRUMENT ABS NEUTROPHIL CT 7.5 K/uL; LYMPHOCYTE COUNT 1.5 K/uL (1.0-2.8); MCH 27.7 PG (29.0-34.0); MCHC 31.6 G/DL (30.0-36.0); MCV 87.9 FL (86-99); MEAN PLAT.VOLUME 11.3 uM^3 (9.0-12.4); MONOCYTE (%) 5.1 % (3-12); MONOCYTE COUNT 0.5 K/uL (0-0.8); NEUTROPHIL (%) 75.2 % (45-76); NEUTROPHIL COUNT 7.5 K/uL (1.8-6.4); PLATELET COUNT 122 K/uL (156-360); RBC DIS.WIDTH-CV 13.8 % (11.8-14.6); RBC DIS.WIDTH-SD 43.7 % (39-53); RED BLOOD COUNT 3.46 M/uL (4.00-5.50)
[2017-05-04 07:29] LABS: ANION GAP 6 MEQ/L (2-14); CHLORIDE 109 MEQ/L (99-109); GFR ESTIMATE (CALCULATED) > 59 mL/min/; GLUCOSE 210 mg/dL (70-99); POTASSIUM 4.2 MEQ/L (3.7-5.4); SAMPLE HEMOLYSIS CHECK 0; SAMPLE ICTERIC CHECK 0; SAMPLE LIPEMIA CHECK 0; SODIUM 137 MEQ/L (136-147); UREA NITROGEN (BUN) 19 mg/dL (9-23)
[2017-05-04 11:32] LABS: POINT-OF-CARE METER ID UU13113731
[2017-05-04 18:21] LABS: POINT-OF-CARE METER ID UU13113731
[2017-05-04 23:58] LABS: POINT-OF-CARE METER ID UU13113731
[2017-05-05] VITALS (7 sets, daily range): BP systolic 140–182; BP diastolic 58–87
[2017-05-05 06:09] LABS: POINT-OF-CARE METER ID UU14208751
[2017-05-05 12:35] LABS: POINT-OF-CARE METER ID UU14208751
[2017-05-05 14:30] LABS: Heparin Induced Plt Ab Negative (Negative)
[2017-05-05 23:33] LABS: POINT-OF-CARE METER ID UU14188625
[2017-05-06] VITALS (7 sets, daily range): BP systolic 104–158; BP diastolic 52–76
[2017-05-06 06:27] LABS: POINT-OF-CARE METER ID UU14188625
[2017-05-06 09:53] LABS: UFH SRA Result Negative (Negative)
[2017-05-06 11:35] LABS: POINT-OF-CARE METER ID UU14188625
[2017-05-06 19:40] LABS: POINT-OF-CARE METER ID UU13113717
[2017-05-06 20:05] LABS: BASE EXCESS -1.6 mEq/L (-3 to +3); BICARBONATE 21.3 mEq/L (22-26); CARBOXY HGB 1.3 % (0-5); METHEMOGLOBIN 1.4 % (0-1.5); PCO2 30 mm Hg (35-45); pH 7.46 (7.35-7.45)
[2017-05-06 20:06] LABS: PO2 193 mm Hg (80-100)
[2017-05-06 20:07] LABS: DEVICE NRB MASK; O2 FLOW 15 L/MIN; SITE RR
[2017-05-06 20:36] LABS: HEMATOCRIT 40.9 % (38.0-50.0); MCH 28.7 PG (29.0-34.0); MCHC 32.3 G/DL (30.0-36.0); MCV 88.9 FL (86-99); RBC DIS.WIDTH-CV 14.6 % (11.8-14.6); RBC DIS.WIDTH-SD 45.9 % (39-53); WHITE BLOOD COUNT 16.8 K/uL (4.1-10.2)
[2017-05-06 20:40] LABS: ANION GAP 10 MEQ/L (2-14); CHLORIDE 106 MEQ/L (99-109); GFR ESTIMATE (CALCULATED) > 59 mL/min/; GLUCOSE 269 mg/dL (70-99); POTASSIUM 4.8 MEQ/L (3.7-5.4); SAMPLE HEMOLYSIS CHECK 0; SAMPLE ICTERIC CHECK 0; SAMPLE LIPEMIA CHECK 0; SODIUM 138 MEQ/L (136-147); UREA NITROGEN (BUN) 24 mg/dL (9-23)
[2017-05-06 20:45] LABS: TROP-I INTERPRETATION NEGATIVE; TROPONIN-I < 0.01 ng/mL (0.0-0.30)
[2017-05-06 20:53] LABS: PLAT.SUFFICIENCY DECREASED; PLATELET CLUMPS PRESENT - PLATELET COUNTS APPEARS DECREASED
[2017-05-06 20:54] LABS: PLATELET COUNT UNABLE TO REPORT K/uL (156-360)
[2017-05-07 03:35] VITALS: BP 145/65
[2017-05-07 05:40] LABS: POINT-OF-CARE METER ID UU13113717
[2017-05-07 07:41] VITALS: BP 113/63
[2017-05-07 11:57] VITALS: BP 147/63
[2017-05-07 12:19] LABS: POINT-OF-CARE METER ID UU13113717
[2017-05-07 16:13] VITALS: BP 144/68
[2017-05-07 18:48] LABS: POINT-OF-CARE METER ID UU14188625
[2017-05-07 21:06] LABS: POINT-OF-CARE METER ID UU14188625
[2017-05-07 23:39] VITALS: BP 187/74
[2017-05-08 03:37] VITALS: BP 142/71
[2017-05-08 05:55] LABS: POINT-OF-CARE METER ID UU14188625
[2017-05-08 07:25] VITALS: BP 178/76
[2017-05-08 10:50] VITALS: BP 180/86
[2017-05-08 14:03] LABS: POINT-OF-CARE METER ID UU13113717
[2017-05-08 18:23] LABS: POINT-OF-CARE METER ID UU14174225
[2017-05-08 19:19] VITALS: BP 126/63
[2017-05-08 23:54] LABS: POINT-OF-CARE METER ID UU13113717
[2017-05-09 00:12] VITALS: BP 181/79
[2017-05-09 03:42] VITALS: BP 179/70
[2017-05-09 08:23] VITALS: BP 160/73
[2017-05-09 13:07] LABS: POINT-OF-CARE METER ID UU13113717
[2017-05-09 16:35] VITALS: BP 160/80
[2017-05-09 18:09] LABS: POINT-OF-CARE METER ID UU13113717
[2017-05-09 23:21] VITALS: BP 137/69
[2017-05-10 00:48] LABS: POINT-OF-CARE METER ID UU13113717
[2017-05-10 01:06] LABS: POINT-OF-CARE METER ID UU13113717
[2017-05-10 06:01] LABS: EOSINOPHIL (%) 1.1 % (0-5); EOSINOPHIL COUNT 0.1 K/uL (0-0.3); HEMATOCRIT 30.9 % (38.0-50.0); IMMATURE GRANULOCYTE (%) 1.2 % (0.0-0.7); IMMATURE GRANULOCYTE COUNT 0.1 K/uL; INSTRUMENT ABS NEUTROPHIL CT 8.9 K/uL; LYMPHOCYTE COUNT 1.9 K/uL (1.0-2.8); MCH 29.4 PG (29.0-34.0); MCHC 32.7 G/DL (30.0-36.0); MCV 89.8 FL (86-99); MEAN PLAT.VOLUME 10.8 uM^3 (9.0-12.4); MONOCYTE (%) 4.4 % (3-12); MONOCYTE COUNT 0.5 K/uL (0-0.8); NEUTROPHIL (%) 76.9 % (45-76); NEUTROPHIL COUNT 8.9 K/uL (1.8-6.4); PLATELET COUNT 250 K/uL (156-360); RBC DIS.WIDTH-CV 14.8 % (11.8-14.6); RBC DIS.WIDTH-SD 47.8 % (39-53); RED BLOOD COUNT 3.44 M/uL (4.00-5.50); WHITE BLOOD COUNT 11.6 K/uL (4.1-10.2)
[2017-05-10 06:22] LABS: ANION GAP 6 MEQ/L (2-14); CHLORIDE 110 MEQ/L (99-109); GFR ESTIMATE (CALCULATED) > 59 mL/min/; GLUCOSE 208 mg/dL (70-99); POTASSIUM 4.8 MEQ/L (3.7-5.4); SAMPLE HEMOLYSIS CHECK 2; SAMPLE ICTERIC CHECK 0; SAMPLE LIPEMIA CHECK 0; SODIUM 136 MEQ/L (136-147); UREA NITROGEN (BUN) 16 mg/dL (9-23)
[2017-05-10 06:42] LABS: POINT-OF-CARE METER ID UU14174225
[2017-05-10 12:23] LABS: POINT-OF-CARE METER ID UU13113717; POINT-OF-CARE USER ID STWAMT
[2017-05-10] MEDS ORDERED: MORPHINE CON20 MG/M1 PO (12:48)
[2017-05-28 10:43] LABS: RESEND RESULTS RESEND RESULTS
== END 2017-05-10 16:33 | DRG 64 ==
LOC: EME 11:08 → 4WEST 14:11 → EDOF 14:11 → ENRESERV 14:24 → 4WEST 16:48 → ENRESERV 05-05 12:12 → 5SOUTH 05-05 15:55
PROVIDERS: Emergency Medicine; Hospitalist; Internal Medicine; Internal Medicine Critical Care Medicine
PROC: 5A1945Z Respiratory Ventilation, 24-96 Consecutive Hours (ICD-10-PCS; principal; 2017-04-30)
PROC: 0BH17EZ Insertion of Endotracheal Airway into Trachea, Via Natural or Artificial Opening (ICD-10-PCS; principal; 2017-04-30)
PROC: 02HV33Z Insertion of Infusion Device into Superior Vena Cava, Percutaneous Approach (ICD-10-PCS; principal; 2017-04-30)
DX: I63.511 Cerebral infarction due to unspecified occlusion or stenosis of right middle cerebral artery (principal); A41.89 Other specified sepsis; A04.71 Enterocolitis due to Clostridium difficile, recurrent; L89.323 Pressure ulcer of left buttock, stage 3; L89.150 Pressure ulcer of sacral region, unstageable; J69.0 Pneumonitis due to inhalation of food and vomit; J96.01 Acute respiratory failure with hypoxia; R57.1 Hypovolemic shock; E46 Unspecified protein-calorie malnutrition; R64 Cachexia; E87.2 Acidosis; R13.10 Dysphagia, unspecified; R47.01 Aphasia; E11.22 Type 2 diabetes mellitus with diabetic chronic kidney disease; N39.0 Urinary tract infection, site not specified; I12.9 Hypertensive chronic kidney disease with stage 1 through stage 4 chronic kidney disease, or unspecified chronic kidney disease; N18.3 Chronic kidney disease, stage 3 (moderate); E78.5 Hyperlipidemia, unspecified; I25.10 Atherosclerotic heart disease of native coronary artery without angina pectoris; N40.1 Benign prostatic hyperplasia with lower urinary tract symptoms; R33.8 Other retention of urine; N13.30 Unspecified hydronephrosis; Z51.5 Encounter for palliative care; I69.354 Hemiplegia and hemiparesis following cerebral infarction affecting left non-dominant side; Z68.1 Body mass index [BMI] 19.9 or less, adult; Z74.01 Bed confinement status; Z79.4 Long term (current) use of insulin; Z79.82 Long term (current) use of aspirin; Z86.718 Personal history of other venous thrombosis and embolism; Z87.440 Personal history of urinary (tract) infections; Z87.441 Personal history of nephrotic syndrome; Z87.891 Personal history of nicotine dependence; Z22.39 Carrier of other specified bacterial diseases; Z23 Encounter for immunization
CPT/HCPCS: 31720; 36600; 70450; 70551; 71010; 74230; 80048; 80053; 80061; 80076; 80202; 81003; 82306; 82803; 82948; 83036; 83605; 83690; 83735; 84100; 84484; 85025; 85027; 85610; 85730; 86022 90; 87040; 87070; 87077; 87086; 87186; 87205; 87493; 87641; 87801; 90686; 92526 GN; 92610 GN; 92611 GN; 93005; 93306; 94002; 94003; 94760; 94799; 97530 GP; 99202; 99281; 99285; C1751; C1753; J0295; J0360; J0692; J0696; J1644; J1815; J2250; J2543; J3370; J3475; J7030; J7050; J7120; S0028; S0030